=== PATIENT | female | born 1990 | race American Indian/Alaskan Native ===

== ENCOUNTER 2021-10-25 08:39 | Day surgery (SDC) | payer MEDICAID ==
[~2021-10-25 08:39] MED LIST: SODIUM CHLORIDE 0.9% 1000 ML 1,000 ML IV SCH
--- NOTE | 2021-10-25 10:44 | Anesthesia Day of Surgery ---
Anesthesia Day of Surgery - Day of Surgery Patient Examined: Yes Patient H&P Reviewed: Yes Patient is NPO: Yes
--- NOTE | 2021-10-25 10:45 | Anesthesia Consultation ---
Anesthesia Consult and Med Hx Date of service: 10/25/21 - Airway Anesthetic Teeth Evaluation: Good Mallampati Class: Class II Intubation Access Assessment: Good - Pulmonary Exam CTA: Yes - Cardiac Exam Cardiac Exam: RRR - Pre-Operative Health Status ASA Pre-Surgery Classification: ASA3 Proposed Anesthetic Plan: MAC - Pulmonary Hx Sleep Apnea: Yes - Gastrointestinal Hx Gastroesophageal Reflux Disease: Yes - Hematic Hx Anemia: Yes - Other Systems Hx Obesity: Yes
--- NOTE | 2021-10-25 10:45 | Discharge Summary ---
Providers - Providers Date of Admission: 10/25/2021 Date of discharge: 10/25/21 Attending physician: ADRIENNE CALDERON MD Primary care physician: [employer] Hospitalization Reason for admission: pre-op egd Condition: Good Procedures: egd with bx Hospital course: Pt presented for a pre-op EGD as part of planning for up coming bariatric surgery. Procedure was uneventful and pt recovered well and was discharged to home. Disposition: 01 HOME / SELF CARE / HOMELESS Final Discharge Diagnosis (Prints w/discharge instructions): morbid obesity, gerd Core Measure Documentation - Palliative Care Palliative Care/ Comfort Measures: Not Applicable - Core Measures Any of the following diagnoses?: none Exam - Physical Exam Narrative exam: unchanged from pre-op Plan Activity: advance as tolerated Diet: low carbohydrate Follow up with: PRIMARY CAREMD [Primary Care Provider] - 7 Days
--- NOTE | 2021-10-25 10:46 | Operative Report ---
Operative Report Operative Report: DATE: 10/25/2021 SURGERY: Upper endoscopy. SURGEON: Maribel Smith M.D. PROCEDURE: EGD with biopsy PRE OP DX: morbid obesity, GERD POST OP DX: morbid obesity, GERD TYPE OF ANESTHESIA: MAC. ESTIMATED BLOOD LOSS: None. COMPLICATIONS: None. SPECIMENS REMOVED: antral biopsy FINDINGS: 1. Small hiatal hernia. 2. antral gastritis INDICATIONS:INDICATION FOR PROCEDURE: Patient is a 31-year-old female with a long history of morbid obesity. She is planned to have a weight loss procedure and is here for preoperative planning EGD. PROCEDURE DETAILS: After consent was reviewed, patient was taken back to the operating room where patient was placed in the left lateral decubitus position and a bite block was placed in the mouth. After a time-out was called, MAC anesthesia was initiated. I then passed the endoscope into her oropharynx, into her esophagus, visualized the entire esophagus, which was all within normal limits. Z-line was noted to about 40cm from incisors. I then visualized the stomach and the first portion of the duodenum and there were no abnormalities I could clearly visualize except for antral gastritis. A cold forceps biopsy of the antrum was taken and will be sent to pathology to evaluate for H.pylori. I then retroflexed the scope in the stomach and visualized the hiatus and I could see a small hiatal hernia. I then desufflated the stomach and removed the endoscope. Patient tolerated procedure well and was transferred to recovery room in good and stable condition.
[2021-10-25] MEDS ORDERED: propofoL 200 MG/20 ML VIAL IV ONE ×2 (10:58)
[2021-10-25] MEDS ORDERED: LIDOCAINE MPF (2%) 20 MG/1 ML VIAL 5 ML ONE (10:58)
--- NOTE | 2021-10-25 15:06 | Post Anesthesia Evaluation ---
- Post Anesthesia Evaluation Patient Participated: Yes Airway Patent: Yes Stable Respiratory Function: Yes Nausea/Vomiting: No Temp > 96.8F: Yes Pain Manageable: Yes Adequeate Hydration: Yes Anesthesia Complications: No Block Receding Appropriately: Not Applicable Patient on Ventilator: No
[2021-10-25 16:32] VITALS: BP 130/74
== END 2021-10-25 12:10 | disposition home or self-care (01) ==
LOC: GIO 08:39
PROVIDERS: ATTEND Surgery
DX: K21.9 Gastro-esophageal reflux disease without esophagitis (principal); E66.01 Morbid (severe) obesity due to excess calories; K44.9 Diaphragmatic hernia without obstruction or gangrene; K29.70 Gastritis, unspecified, without bleeding; D64.9 Anemia, unspecified; G47.33 Obstructive sleep apnea (adult) (pediatric); Z98.891 History of uterine scar from previous surgery
CPT/HCPCS: 43239; 81025; 88305; 88342; J2704; J7030

== ENCOUNTER → 2021-10-31 | Outpatient (CLI) | payer MEDICAID | END | disposition home or self-care (01) | LOC: SLR 11:00 | PROVIDERS: ATTEND Surgery | DX: G47.30 Sleep apnea, unspecified (principal) | CPT/HCPCS: G0399 ==

== ENCOUNTER 2022-02-20 05:49 | Inpatient (IN) | payer MEDICAID ==
[2022-02-15 11:08] LABS: Alanine Aminotransferase 12 units/L (7-56); Blood Urea Nitrogen 13 mg/dL (7-17); Calcium 9.7 mg/dL (8.4-10.2); Hemolysis Index 4
[2022-02-15 11:13] LABS: BUN/Creatinine Ratio 19
[2022-02-15 11:35] LABS: Hematocrit 41.1 % (30.3-42.9); Mean Corpuscular HGB Conc 32 % (30-34); Mean Corpuscular Volume 86 fl (79-97); Platelet Count 283 K/mm3 (140-440); Red Blood Count 4.78 M/mm3 (3.65-5.03); Red Cell Distribution Width 14.9 % (13.2-15.2)
--- NOTE | 2022-02-15 15:41 | Anesthesia Consultation ---
Anesthesia Consult and Med Hx Date of service: 02/20/22 - Airway Anesthetic Teeth Evaluation: Good ROM Head & Neck: Adequate Mental/Hyoid Distance: Adequate Mallampati Class: Class III Intubation Access Assessment: Probably Good - Pre-Operative Health Status ASA Pre-Surgery Classification: ASA3 Proposed Anesthetic Plan: General - Pulmonary Hx Smoking: Yes (SMOKES 3 CIGARETTES/DAY, EVERYDAY. HASN'T SMOKED IN 2 WEEKS.) Hx Asthma: No Hx Respiratory Symptoms: No (+2FS) COPD: No Hx Pneumonia: No Hx Sleep Apnea: Yes (Pt denies; positive sleep study) - Central Nervous System Hx Psychiatric Problems: Yes - Gastrointestinal Hx Gastroesophageal Reflux Disease: Yes - Endocrine Hx Non-Insulin Dependent Diabetes: No - Hematic Hx Anemia: Yes Hx Sickle Cell Disease: Yes (SICKLE CELL TRAIT) - Other Systems Hx Alcohol Use: Yes (DRINKS WINE SUNDAY AND SUNDAY) Hx Substance Use: No Hx Cancer: No Hx Obesity: Yes
[2022-02-20] MEDS ORDERED: ENOXAPARIN 40 MG/0.4 ML INJ SUB-Q NR (06:00)
[2022-02-20] MEDS ORDERED: metroNIDAZOLE/NS 500 MG/100 ML 500 MG/100 ML BAG IV NR (06:00)
[2022-02-20] MEDS ORDERED: SCOPOLAMINE TRANSDERMAL PATCH 72 HR TD NR (06:00)
[2022-02-20] MEDS ORDERED: GABAPENTIN 500 MG/10 ML ORAL LIQD PO NR (06:00)
[2022-02-20] MEDS ORDERED: methOCARBAMOL 1,000 MG in SODIUM CHLORIDE 0.9% 250ML 250 ML IV NR (06:00)
[2022-02-20] MEDS ORDERED: MIDAZOLAM 2 MG/2 ML INJ IV NR (06:00)
[2022-02-20] MEDS ORDERED: dexAMETHasone 20 MG/5 ML VIAL ONE (07:13)
[2022-02-20] MEDS ORDERED: ONDANSETRON 4 MG/2 ML INJ ONE (07:13)
[2022-02-20] MEDS ORDERED: KETOROLAC 30 MG/1 ML INJ ONE (07:13)
[2022-02-20] MEDS ORDERED: ROCURONIUM 50 MG/5 ML INJ IV ONE (07:13)
[2022-02-20] MEDS ORDERED: KETAMINE/STERILE WATER 50 MG/ML SYRINGE ONE (07:14)
[2022-02-20] MEDS ORDERED: propofoL 200 MG/20 ML VIAL IV ONE ×4 (07:14→08:56)
[2022-02-20] MEDS ORDERED: fentaNYL 100 MCG/2 ML INJ ONE (07:20)
[2022-02-20] MEDS ORDERED: MAGNESIUM SULFATE 2 GM/50 ML BAG IV ONE (07:28)
[2022-02-20] MEDS ORDERED: SUGAMMADEX SODIUM 200 MG/2 ML VIAL IV ONE (07:28)
[2022-02-20] MEDS: ACETAMINOPHEN IV 1,000 MG/100 ML BOTTLE IV NR ×4 (07:30→17:51)
[2022-02-20] MEDS: LACTATED RINGERS 1,000 ML IV SCH ×2 (07:30→12:23)
[2022-02-20] MEDS ORDERED: BUPIVACAINE-EPINEPHRINE/PF 0.25%-1:200,000 (30 ML) VIAL INFILTRATI ONE (07:57)
[2022-02-20] MEDS ORDERED: LIDOCAINE (2%) 20 MG/1 ML VIAL 20 ML MDV INFILTRATI ONE (07:57)
[2022-02-20] MEDS ORDERED: LIDOCAINE 2%/EPINEPHRINE 1:100,000 VIAL (20 ML) INFILTRATI ONE ×2 (07:58→09:39)
[2022-02-20] MEDS ORDERED: BUPIVACAINE/PF (0.25%) 2.5 MG/ML 30 ML VIAL INFILTRATI ONE ×2 (08:57→09:39)
[2022-02-20] MEDS ORDERED: SODIUM CHLORIDE 0.9% IRR 1,500 ML BOTTLE IR ONE (09:38)
[2022-02-20] MEDS ORDERED: SCOPOLAMINE TRANSDERMAL PATCH 72 HR TD SCH (10:00)
--- NOTE | 2022-02-20 10:19 | Operative Report ---
Operative Report Operative Report: DATE:02/20/2022 Surgeon: Maribel Smith MD Home Stager surgeon: Mamta Mackey CSA MD Pre-op Dx: morbid obesity Post-op Dx: morbid obesity Procedure: 1. laparoscopic sleeve gastrectomy, Anesthesia: GETA, TAP block EBL: <10ml Specimen: gastric remnant Complication: none immediate Indication: 31 year old female with a history of morbid obesity . Pt is here for sleeve gastrectomy for weight loss to achieve healthier weight and improve or resolve her co-morbidities. She expressed understanding of the risks and benefits. PROCEDURE IN DETAIL: After consent was reviewed, patient was taken back to the operating room, where patient was placed supine on the bed with both arms out. The patient's legs were doubly strapped to the bed. Patient had a foot board in place. Patient had a body warmer placed by anesthesia. General anesthesia was induced with successful endotracheal intubation. Patient was then prepped and draped in normal sterile surgical fashion. After a time-out was called, I made a stab incision in the left subcostal area and placed a Veress needle through this incision and insufflated the abdomen to 15 mmHg pressure. I then counted down a handsbreadth below the xiphoid process in the midline and slightly left lateral injected local anesthetic and made about 1 cm transverse incision. I then used a 5-mm Optiview trocar to enter into the abdomen. There was no gross injury to any intra-abdominal structures. I then placed a 30-degree scope through this port and inspected the abdomen. I then placed a 5-mm port in the right upper quadrant, and 1 epigastric area below the costovertebral angle. I then placed a 15-mm port about a handsbreadth in the right mid abdomen. After which a 5mm port was placed in left upper quadrant port along the anterior axillary line in a similar fashion. A liver retractor was placed to the epigastric port to elevate the left lateral lobe and liver. The anterior gastric fat pad was excised. Starting approximately 6 cm proximal to the pylorus, using a Enseal device the short gastrics were taken all the way to the left beny. Once the lateral portion of the stomach was mobile anesthesia passed a 40 Slovak bougie along the medial aspect to act as a stent. Using serial firings of endoscopic stapler to gold, followed by 4 blue, the lateral portion of the stomach was transected making sure to did not close to the 2 cm to the incisura. All staple loads were supported with Ethicon buttress strips. The sleeve stomach was seen to be witho ut kink obstruction or twisting. The pressure was decreased to 10 mmHg. The staple line was inspected for approximately 5 minutes. There was no significant bleeding appreciated except for a slight loose at the most distal portion of the staple line. Bleeding was minimal and easily controlled with minimal cautery. Vistaseal was then sprayed along the entirety of the staple line. The liver re tractor was removed. This was after the gastric remnant was grasped and pulled into the 15 mm trocar site. The stomach was extracted via the 15 mm trocar site. After the fascia had to be stretched with a Alanna clamp to easily remove the stomach, the fascia was closed using a jack elias device at the level of the fascia with an 0 PDS. trocars were removed under direct visualization. A TAP block was performed in transverse abdominis plane at the mid axillary line bilaterally using 60cc of 0.25% marcaine. All skin incisions were closed with 4-0 Monocryl followed by Dermabond. Patient was awoken, extubated, and taken to recovery stable condition. All counts were correct.
[2022-02-20] MEDS ORDERED: SIMETHICONE 80 MG CHEW TAB PO PRN (11:00)
[2022-02-20] MEDS ORDERED: HYDROmorphone 0.5 MG/0.5 ML INJ IV PRN (11:00)
[2022-02-20] MEDS ORDERED: hydrALAZINE 20 MG/1 ML INJ IV PRN (11:00)
[2022-02-20] MEDS ORDERED: ONDANSETRON 4 MG/2 ML INJ IV PRN (11:00)
[2022-02-20] MEDS ORDERED: LACTATED RINGERS 1,000 ML IV SCH (11:00)
[2022-02-20] MEDS ORDERED: METOCLOPRAMIDE 10 MG/2 ML INJ IV PRN (11:00)
[2022-02-20] MEDS: PANTOPRAZOLE 40 MG INJ IV SCH (11:11)
[2022-02-20] MEDS: ACETAMINOPHEN IV 1,000 MG/100 ML BOTTLE IV SCH ×2 (11:15→17:52)
[2022-02-20] MEDS: KETOROLAC 30 MG/1 ML INJ IV SCH ×2 (12:23→22:28)
[2022-02-20] MEDS: HYDROmorphone 0.5 MG/0.5 ML INJ IV PRN ×3 (13:10→23:38)
[2022-02-20] MEDS: metroNIDAZOLE/NS 500 MG/100 ML 500 MG/100 ML BAG IV SCH ×2 (14:27→23:37)
--- NOTE | 2022-02-20 14:28 | Post Anesthesia Evaluation ---
- Post Anesthesia Evaluation Patient Participated: Yes Airway Patent: Yes Stable Respiratory Function: Yes Nausea/Vomiting: No Temp > 96.8F: Yes Pain Manageable: Yes Adequeate Hydration: Yes Anesthesia Complications: No
--- NOTE | 2022-02-20 14:28 | Anesthesia Day of Surgery ---
Anesthesia Day of Surgery - Day of Surgery Patient Examined: Yes Patient H&P Reviewed: Yes Patient is NPO: Yes
[2022-02-20] MEDS: ceFAZolin/NS 1 GM/50 ML 1 GM/50 ML BAG IV SCH ×2 (16:06→23:37)
[2022-02-21] MEDS: ACETAMINOPHEN IV 1,000 MG/100 ML BOTTLE IV SCH ×2 (00:05→06:24)
[2022-02-21] MEDS: HYDROmorphone 0.5 MG/0.5 ML INJ IV PRN (04:37)
[2022-02-21 04:51] LABS: Basophils % (Auto) 0.2 % (0.0-1.8); Hematocrit 38.8 % (30.3-42.9); Hemoglobin 12.2 gm/dl (10.1-14.3); Lymphocytes # (Auto) 1.5 K/mm3 (1.2-5.4); Lymphocytes % (Auto) 13.6 % (13.4-35.0); Mean Corpuscular HGB Conc 32 % (30-34); Mean Corpuscular Volume 86 fl (79-97); Monocytes # (Auto) 0.6 K/mm3 (0.0-0.8); Monocytes % (Auto) 5.3 % (0.0-7.3); Platelet Count 259 K/mm3 (140-440); Red Blood Count 4.49 M/mm3 (3.65-5.03)
[2022-02-21 05:18] LABS: Alanine Aminotransferase 10 units/L (7-56); Albumin 3.9 g/dL (3.9-5); Blood Urea Nitrogen 12 mg/dL (7-17); Calcium 9.1 mg/dL (8.4-10.2); Hemolysis Index 4
[2022-02-21 05:26] LABS: BUN/Creatinine Ratio 17
[2022-02-21] MEDS: PANTOPRAZOLE 40 MG INJ IV SCH (09:19)
[2022-02-21] MEDS: metroNIDAZOLE/NS 500 MG/100 ML 500 MG/100 ML BAG IV SCH (09:20)
[2022-02-21] MEDS: KETOROLAC 30 MG/1 ML INJ IV SCH ×2 (09:20→15:18)
[2022-02-21] MEDS: HYDROcodone/Acetaminophen 7.5-325MG-15ML ORAL LIQD PO PRN ×2 (09:20→17:21)
[2022-02-21] MEDS ORDERED: ENOXAPARIN 40 MG/0.4 ML INJ SUB-Q SCH (10:00)
--- NOTE | 2022-02-21 14:48 | Post Anesthesia Evaluation ---
- Post Anesthesia Evaluation Patient Participated: Yes Airway Patent: Yes Stable Respiratory Function: Yes Nausea/Vomiting: Yes (pt had n/v after transfer to Room 461; no intervention) Temp > 96.8F: Yes Pain Manageable: Yes Adequeate Hydration: Yes Anesthesia Complications: No Block Receding Appropriately: Not Applicable Other Comments: pt spoke highly of the professionalism of the anesthesia care team; no recall during the case
--- NOTE | 2022-02-21 15:38 | Discharge Summary ---
Providers - Providers Date of Admission: 02/20/22 05:49 Date of discharge: 02/21/22 Attending physician: ADRIENNE CALDERON MD 02/20/22 10:12 Physical Therapy Evaluation and Treat [CONS] Routine Comment: Reason For Exam: s/p bariatric surgery Primary care physician: AISHWARYA SPANGLER MD Hospitalization Reason for admission: s/p bariatric surgery Condition: Good Procedures: lap gastric sleeve Hospital course: Patient had an uneventful lapaproscopic sleeve gastrectomy. She recovered well with adequate pain control. She was tolerating oral liquids well and ambulating independently. She remained afebrile and stable having vital signs and laboratory values within acceptable limits. Patient was discharged on postop day #1 showing no gross clinical signs of leak or bleeding. Patient will follow-up in the office in 2 weeks. Disposition: 01 HOME / SELF CARE / HOMELESS Final Discharge Diagnosis (Prints w/discharge instructions): morbid obesity Core Measure Documentation - Palliative Care Palliative Care/ Comfort Measures: Not Applicable - Core Measures Any of the following diagnoses?: none Exam - Constitutional Vitals: Temp Pulse Resp BP Pulse Ox 98.3 F 58 L 18 118/64 99 02/21/22 11:57 02/21/22 11:57 02/21/22 12:45 02/21/22 11:57 02/21/22 12:45 General appearance: Present: no acute distress, obese - EENT Eyes: Present: PERRL ENT: hearing intact - Respiratory Respiratory effort: normal - Cardiovascular Heart Sounds: Present: S1 & S2 - Extremities Extremities: no ischemia - Abdominal General gastrointestinal: Present: soft, other (incisions c/d/i, approporiately tender to palpation) Plan Activity: advance as tolerated Diet: clear liquids Wound: open to air, keep clean and dry Follow up with: PRIMARY MD ANÍBAL [Primary Care Provider] - 7 Days
[2022-02-21 17:04] VITALS: BP 138/73
== END 2022-02-21 19:20 | disposition home or self-care (01) | DRG 621 ==
LOC: 3A 05:49 → 4A 11:04
PROVIDERS: ADMIT Surgery; ATTEND Surgery
PROC: 0DB64Z3 Excision of Stomach, Percutaneous Endoscopic Approach, Vertical (ICD-10-PCS; principal; 2022-02-20)
DX: E66.01 Morbid (severe) obesity due to excess calories (principal); K21.9 Gastro-esophageal reflux disease without esophagitis; Z83.3 Family history of diabetes mellitus; Z82.49 Family history of ischemic heart disease and other diseases of the circulatory system; Z68.42 Body mass index [BMI] 45.0-49.9, adult; Z20.822 Contact with and (suspected) exposure to COVID-19; Z87.891 Personal history of nicotine dependence
CPT/HCPCS: 36415; 80053; 84703; 85025; 85027; 86850; 86900; 86901; 88305; 88307; 88342; G0378; J3490; J7121; J7517; C9113; J0131; J0690; J1100; J1170; J1650; J1885; J2405; J2704; J2765; J3010; J3475; J7120; U0003